=== PATIENT | female | born 1960 | race Caucasian/White ===

== ENCOUNTER 2017-04-14 11:31 | Outpatient (CLI) | payer OTHER ==
[2017-04-14 11:44] LABS: BASOPHILS % 0.3 (0.0-1.5); EOSINOPHILS % 1.8 % (0.0-6.8); MEAN CORPUSCULAR HEMOGLOBIN 29.5 pg (28.0-34.0); MEAN CORPUSCULAR VOLUME 87.2 fl (80.0-100.0); MONOCYTES % 5.1 % (0.0-11.0); NEUTROPHILS # 4.8 # k/uL (1.4-7.7)
[2017-04-14 12:11] LABS: eGFR (African) > 60; eGFR (Non-African) > 60
--- NOTE | 2017-04-14 13:26 | Diagnostic Imaging Report ---
KATHY DIAZ [facility] [address] [facility] [address] [place], [place]. [address] Report Submission Date: Apr 14, 2017 12:26:09 PM CDT Patient Study Name: ELY SWAIN Date: Apr 14, 2017 11:54:35 AM CDT Modality Type: CR Gender: F Description: ABDOMEN : 58 Institution: [facility] Physician: KATHY DIAZ Examination: Obstruction series History: Abdominal discomfort Findings: 3 views obtained of the abdomen. No abnormal dilation of the large or small bowel. Air and stool throughout the large bowel. No suspicious calcification projecting over the renal fossa or the lower pelvic region. Osseous structures are appropriate for age. Impression: No ileus or obstruction. No suspicious calcifications by plain film sensitivity. Electronically signed on Apr 14, 2017 12:26:09 PM CDT by: Aaron VALENTINE
== END 2017-04-14 11:32 ==
LOC: RAD 11:31
PROVIDERS: ATTEND Family Medicine
DX: R10.10 Upper abdominal pain, unspecified (principal)
CPT/HCPCS: 36415; 74020; 80053; 80074; 85025

== ENCOUNTER 2017-04-15 07:43 | Outpatient (CLI) | payer OTHER ==
[2017-04-15 08:57] LABS: eGFR (African) > 60; eGFR (Non-African) > 60
--- NOTE | 2017-04-15 19:13 | Diagnostic Imaging Report ---
KATHY DIAZ [facility] [address] [facility] [address] [address] Report Submission Date: Apr 15, 2017 9:08:19 AM CDT Patient Study Name: ELY SWAIN Date: Apr 15, 2017 8:04:31 AM CDT Modality Type: US Gender: F Description: US ABD LIMITED : 58 Institution: [facility] Physician: KATHY DIAZ Ultrasound right upper quadrant History: Elevated liver enzymes, right upper quadrant pain, nausea, for 2 weeks Findings: Visualized portions of the pancreas are unremarkable. Mildly increased hepatic parenchymal echogenicity is observed. Antegrade main portal venous flow is present. An 8 mm right renal stone is observed. The right kidney otherwise normal. Innumerable gallstones and moderate gallbladder contraction are observed without significant gallbladder wall thickening. The common bile duct measures 4 mm in diameter. Impression: 1. Mild hepatic steatosis. 2. Cholelithiasis. 3. Right renal stone as observed radiographically yesterday. Electronically signed on Apr 15, 2017 9:08:19 AM CDT by: Adam VALENTINE
== END 2017-04-15 07:44 ==
LOC: RAD 07:43
PROVIDERS: ATTEND Family Medicine
DX: R10.10 Upper abdominal pain, unspecified (principal); R79.89 Other specified abnormal findings of blood chemistry
CPT/HCPCS: 36415; 76705; 80053

== ENCOUNTER 2017-04-22 07:03 | Outpatient (CLI) | payer OTHER ==
[2017-04-22 07:42] LABS: eGFR (African) > 60; eGFR (Non-African) > 60
== END 2017-04-22 07:04 ==
LOC: LAB 07:03
PROVIDERS: ATTEND Family Medicine
DX: R79.89 Other specified abnormal findings of blood chemistry (principal)
CPT/HCPCS: 36415; 80053

== ENCOUNTER 2017-07-04 04:40 | Emergency (ER) | payer OTHER ==
[2017-07-04] MEDS ORDERED: KETOROLAC TROMETHAMINE 60 MG/2 ML VIAL ONE (04:51)
[2017-07-04] MEDS ORDERED: KETOROLAC TROMETHAMINE 60 MG/2 ML VIAL IM ONE (04:52)
[2017-07-04 05:01] VITALS: BP 148/81
--- NOTE | 2017-07-04 05:24 | ED Physician Documentation ---
GI Bleed - HISTORIAN Historian: patient - HPI Stated Complaint: flank pain Chief Complaint: Abdominal Pain Additional Information: proven gall stones sched for surgery Jul 24 having ac exab pain requests nonopiate pain meds Onset: days ago (2-3 worse tonite) Timing: still present Severity: moderate - Associated Symptoms Abdominal Pain: cramping, aching, burning, moderate, RUQ Other Related Symptoms: nausea, back pain - ROS CONST: no problems CVS/RESP: none EYES/ENT: denies: problems with vision, sore throat NEURO/PSYCH: anxiety, depression - PAST HX Past History: other (bipolar lo thryoid gerd hi chol) Surgeries/Procedures: BLT Allergies/Adverse Reactions: Allergies Allergy/AdvReac Type Severity Reaction Status Date / Time No Known Allergies Allergy Verified 07/04/17 04:54 Home Medications: Ambulatory Orders Medication Instructions Recorded Clonazepam [Klonopin] 1 mg PO BID 09/01/12 Lamotrigine [Lamictal] 200 mg PO DAILY 09/01/12 Sertraline HCl [Zoloft] 200 mg PO DAILY 09/01/12 Ziprasidone HCl [Geodon] 80 mg PO BID 09/01/12 - SOCIAL HX Smoking History: non-smoker Alcohol Use: none Drug Use: none - FAMILY HX Family History: none - VITAL SIGNS Vital Signs: Vital Signs Temp Pulse Resp BP Pulse Ox 98.4 F 75 16 148/81 99 07/04/17 04:45 07/04/17 04:45 07/04/17 04:45 07/04/17 04:45 07/04/17 04:45 - REVIEWED ASSESSMENTS Nursing Assessment Reviewed: Yes Vitals Reviewed: Yes ED Results Lab/Radiology - Orders Orders: ED Orders Category Date Time Status Ketorolac Tromethamine [Toradol] Med 07/04/17 04:51 Discontinued 60 mg .ROUTE .STK-MED ONE Ketorolac Tromethamine [Toradol] Med 07/04/17 04:52 Once 60 mg IM NOW ONE Abdominal Pain Physical Exam - Physical Exam General Appearance: mild distress, moderate distress EENT: eye inspection normal NECK: normal inspection RESPIRATORY: no resp distress, chest non-tender, breath sounds normal CVS: reg rate & rhythm, heart sounds normal ABDOMEN: soft, tenderness (all acrossupper abdomen). No: abnormal bowel sounds SKIN: warm/dry, normal color. No: cyanosis, diaphoresis, jaundice EXTREMITIES: non-tender, normal range of motion NEURO: oriented X3, motor nml, sensation nml, mood/affect nml Vital Signs: Vital Signs Temp Pulse Resp BP Pulse Ox 98.4 F 75 16 148/81 99 07/04/17 04:45 07/04/17 04:45 07/04/17 04:45 07/04/17 04:45 07/04/17 04:45 Discharge Clincal Impression: gall stones w/ccolic Referrals: Britany Guzman MD [Primary Care Provider] - 2 Days Condition: Good Disposition: 01 HOME, SELF-CARE Decision to Admit: NO Decision Time: 05:28
== END 2017-07-04 05:20 | disposition home or self-care (01) ==
LOC: ED 04:40
DX: K80.10 Calculus of gallbladder with chronic cholecystitis without obstruction (principal)
CPT/HCPCS: 96372; 99283; J1885

== ENCOUNTER 2017-08-07 07:03 | Outpatient (CLI) | payer OTHER | END 2017-08-07 07:05 | LOC: LAB 07:03 | PROVIDERS: ATTEND Counselor Mental Health | DX: Z79.899 Other long term (current) drug therapy (principal) | CPT/HCPCS: 36415; 80061; 84439; 84443 ==

== ENCOUNTER 2017-10-08 07:38 | Day surgery (SDC) | payer OTHER ==
--- NOTE | 2017-10-09 10:25 | Operative Note ---
SURGEON: Yossi Cavanaugh MD ANESTHESIA: MAC anesthesia. ESTIMATED BLOOD LOSS: None. COMPLICATIONS: None. PREOPERATIVE DIAGNOSIS: Screening colonoscopy. POSTOPERATIVE DIAGNOSIS: Colon polyps. PROCEDURE PERFORMED: Colonoscopy with polypectomy. INDICATIONS: This is a 56-year-old woman who presents for a screening colonoscopy. DESCRIPTION OF PROCEDURE: Patient was brought to the endoscopy suite and placed in the left lateral decubitus position. A rectal examination was performed. There were no masses. The colonoscope was inserted and passed easily to the cecum. The prep was excellent. The appendiceal orifice and ileocecal valve were identified. The colonoscope was slowly retracted. There was a greater than 6 minute withdrawal time. In the sigmoid, there was an approximately 6 mm sessile polyp which was completely removed with a hot snare. In the rectum, there was a 3 mm to 4 mm sessile removed with a cold snare. There were no other findings. There were no other abnormalities. The patient tolerated the procedure well. SPECIMEN: Colon polyps. FINDINGS: 1. A small sessile polyp in the sigmoid colon completely removed with a hot snare. 2. Diminutive sessile polyp in the rectum completely removed with a cold snare. RECOMMENDATIONS: I recommend a repeat colonoscopy in 5 years. cc: Dr. Britany VALENTINE
== END 2017-10-08 07:40 ==
LOC: OPSURG 07:38
PROVIDERS: ATTEND Colon & Rectal Surgery
DX: Z12.11 Encounter for screening for malignant neoplasm of colon (principal); D12.5 Benign neoplasm of sigmoid colon; D12.8 Benign neoplasm of rectum
CPT/HCPCS: 45385; J2001; J2704; J7120; S1016

== ENCOUNTER 2017-12-11 07:07 | Emergency (ER) | payer OTHER ==
[2017-12-11] MEDS ORDERED: methylPREDNISolone SOD SUCC 125 MG/2 ML VIAL IVP ONE (07:37)
[2017-12-11] MEDS ORDERED: BUDESONIDE 0.5MG/2ML AMPUL.NEB NEB ONE (07:55)
[2017-12-11 07:57] LABS: MEAN CORPUSCULAR HEMOGLOBIN 29.9 pg (28.0-34.0); MEAN CORPUSCULAR VOLUME 89.5 fl (80.0-100.0)
[2017-12-11] MEDS ORDERED: BUDESONIDE 0.5MG/2ML AMPUL.NEB NEB SCH (08:00)
[2017-12-11 08:06] LABS: BASOPHILS % 0.3 (0.0-1.5); EOSINOPHILS % 1.5 % (0.0-6.8); MONOCYTES % 8.5 % (0.0-11.0); NEUTROPHILS # 4.5 # k/uL (1.4-7.7)
[2017-12-11] MEDS ORDERED: GUAIFENESIN/CODEINE 10 ML S/F LIQUID DOSE CUP PO ONE (08:09)
[2017-12-11 08:10] LABS: eGFR (African) > 60; eGFR (Non-African) > 60
[2017-12-11] MEDS ORDERED: ACETAMINOPHEN 325 MG TABLET PO ONE (08:57)
--- NOTE | 2017-12-11 09:10 | ED Physician Documentation ---
Upper Respiratory Symptoms - HISTORIAN Historian: patient - HPI Stated Complaint: cough, diff breathing Chief Complaint: Cough/ Upper Respiratory Additional Information: x 2 weeks, no help from amoxicilin, pro air and tessalon Onset: days ago (14) Duration: sudden-Onset Context: denies: recent foreign travel, insect bite(s), tick(s), recent chemotherapy, multiple patients, same sx Severity: moderate Associated Symptoms: headache, other (nonproductive cough). denies: bloody cough Worsened by Deep Breath: Yes Further Comments: no - ROS CONST/EYES: denies: weakness, eye redness, eye itching CVS/RESP: shortness of breath, other (cough) LYMPH: denies: leg swelling, rash, swollen glands, ankle swelling GI/: none NEURO/PSYCH: denies: fainting, dizziness, confusion, anxiety, depression MS/SKIN: denies: joint pain, muscle aches, rash - PAST HX Lung Disease: COPD Other History: other (anxiety, bipolar disorder) Surgeries/Procedures: none Immunizations: referred to PCP Allergies/Adverse Reactions: Allergies Allergy/AdvReac Type Severity Reaction Status Date / Time No Known Allergies Allergy Verified 12/11/17 07:24 Home Medications: Ambulatory Orders Medication Instructions Recorded Clonazepam [Klonopin] 1 mg PO AM 09/01/12 Lamotrigine [Lamictal] 200 mg PO DAILY 09/01/12 Sertraline HCl [Zoloft] 200 mg PO DAILY 09/01/12 Ziprasidone HCl [Geodon] 40 mg PO BID 09/01/12 Adalimumab [Humira] 40 mg SQ Q14D 28 Days #2 12/01/17 Clonazepam [Clonazepam] 2 mg PO HS 12/11/17 diphenhydrAMINE HCL [Benadryl] 50 mg PO BID 12/11/17 - SOCIAL HX Smoking History: quit greater than 1 year Alcohol Use: none Drug Use: none - FAMILY HX Family History: no significant history - VITAL SIGNS Vital Signs: Vital Signs Temp Pulse Resp BP Pulse Ox 98.2 F 83 20 140/78 93 12/11/17 07:07 12/11/17 07:07 12/11/17 07:07 12/11/17 07:07 12/11/17 07:07 - REVIEWED ASSESSMENTS Nursing Assessment Reviewed: Yes Vitals Reviewed: Yes Progress - Results/Orders Results/Orders: cbc, cmp, blood cultures, lactic acid, ua, bnp, trop, cxr, ekg ordered - Progress Progress: Pt. given 1 liter NS via IV, 10 cc Robitussin AC, Duoneb via nebulizer, Pulmicort 0.5 mg via nebulizer and 125 mg Solu Medrol via nebulizer in ER with significant improvement. Critical Care Note - Critical Care Note Total Time (mins): 0 ED Results Lab/Radiology - Lab Results Lab Results: Lab Results 12/11/17 12/11/17 12/11/17 07:35 07:35 07:35 WBC 7.44 K/ul K/ul (4.00-12.00) RBC 4.04 M/ul M/ul (3.90-5.20) Hgb 12.1 g/dL g/dL (12.0-16.0) Hct 36.1 % % (34.5-46.5) MCV 89.5 fl fl (80.0-100.0) MCH 29.9 pg pg (28.0-34.0) MCHC 33.4 g/dL g/dL (30.0-36.0) RDW 14.7 % H % (11.3-14.3) Plt Count 213 K/mm3 K/mm3 (130-400) Neut % (Auto) 61.0 % % (39.0-79.0) Lymph % (Auto) 26.9 % % (16.0-50.0) Garza % (Auto) 8.5 % % (0.0-11.0) Eos % (Auto) 1.5 % % (0.0-6.8) Baso % (Auto) 0.3 (0.0-1.5) Neut # (Auto) 4.5 # k/uL # k/uL (1.4-7.7) Lymph # (Auto) 2.0 # k/uL # k/uL (0.6-4.0) Garza # (Auto) 0.6 # k/uL # k/uL (0.0-0.9) Eos # (Auto) 0.1 # k/uL # k/uL (0.0-0.6) Baso # (Auto) 0.0 # k/uL # k/uL (0.0-0.5) Sodium 143 mmol/L mmol/L (136-145) Potassium 3.9 mmol/L mmol/L (3.5-5.1) Chloride 104 mmol/L mmol/L (98-107) Carbon Dioxide 25 mmol/L mmol/L (22-30) BUN 9 mg/dL mg/dL (7-17) Creatinine 0.50 mg/dL L mg/dL (0.52-1.04) Estimated Creat Clear 209 Est GFR ( Amer) > 60 (60 - ) Est GFR (Non-Af Amer) > 60 (60 - ) Glucose 94 mg/dL mg/dL (74-106) Lactate 1.9 U/L U/L (0.7-2.1) Calcium 9.4 mg/dL mg/dL (8.4-10.2) Total Bilirubin 0.7 mg/dL mg/dL (0.2-1.3) AST 46 U/L U/L (15-46) ALT 47 U/L U/L (13-69) Alkaline Phosphatase 130 U/L H U/L (38-126) Troponin I < 0.03 ng/mL L ng/mL (0.03-0.06) NT-Pro-B Natriuret Pep 30.4 pg/mL pg/mL (15.0-125.0) Total Protein 7.6 g/dL g/dL (6.3-8.2) Albumin 4.4 g/dL g/dL (3.5-5.0) - Radiology Radiology Impressions: cxr clear of infiltrate - Orders Orders: ED Orders Category Date Time Status CHEST 2VIEW [RAD] Routine Exams 12/11/17 Ordered BLOOD CULTURE Routine Lab 12/11/17 07:35 Received CBC/PLATELET/DIFF Routine Lab 12/11/17 07:35 Completed CMP Routine Lab 12/11/17 07:35 Completed LACTATE Routine Lab 12/11/17 07:35 Completed NT-proBNP Routine Lab 12/11/17 07:35 Completed TROPONIN I (cTnI) Routine Lab 12/11/17 07:35 Completed URINALYSIS Routine Lab 12/11/17 07:36 Ordered Acetaminophen [Tylenol] Med 12/11/17 08:57 Once 650 mg PO NOW ONE Budesonide [Pulmicort] Med 12/11/17 08:00 Ordered 0.5 mg NEB BID Codeine Phosphate/Guaifenesin [Robitussin AC] Med 12/11/17 08:09 Discontinued 10 ml PO 1T ONE methylPREDNISolone SOD SUCC [Solu-MEDROL] Med 12/11/17 07:37 Discontinued 125 mg IVP NOW ONE Oxygen Daily Oxygen 12/11/17 07:45 Ordered EKG WITH COMPARISON Routine Ther 12/11/17 Ordered Upper Respiratory Symptoms - EXAM General Appearance: alert, moderate distress EENT: eyes nml inspection, nml ENT inspection, lids & conjunct. nml, PERRL, ear nml. No: pain over sinuses Neck: normal inspection, thyroid normal, supple Respiratory: respiratory distress (mild), wheezes, rales (left base). No: retractions, accessory muscle use, chest wall tenderness Abdomen: non-tender, no organomegaly, nml bowel sounds CVS: reg rate & rhythm, heart sounds normal, equal pulses Skin: color nml, no rash, warm,dry Extremities: non-tender, normal range of motion Neuro/Psych: oriented x3, neuro intact, mood/affect nml Discharge Clincal Impression: Bronchitis, COPD exacerbation Referrals: Britany Guzman MD [Primary Care Provider] - 2 Days Comments: Discharged home in stable and improved condition with scripts for: Robitussin AC # 200 cc 2 tsp every 4 hours as needed for cough, Prednisone 10 mg #21 Z- 6 pills tomorrow, 5 the next, 4 the next, 3 the next, 2 the next, 1 the next, then stop, Z-pack #1 as directed, nebulizer and albuterol 0.083% prefills #60 1 vial via nebulizer q 4 hours while awake. Condition: Stable Disposition: 01 HOME, SELF-CARE Decision to Admit: NO Decision Time: 09:10
[2017-12-11 09:42] VITALS: BP 129/80
--- NOTE | 2017-12-11 18:04 | Diagnostic Imaging Report ---
CUCA DINERO [facility] [address] [facility] [address] Report Submission Date: December 11, 2017 8:04:46 AM CDT Patient Study Name: ELY SWAIN Date: December 11, 2017 7:43:55 AM CDT Modality Type: DX Gender: F Description: CHEST : 58 Institution: [facility] Physician: CUCA DINERO HISTORY: 56-year-old female with cough for 2 weeks COMPARISON: None available TECHNIQUE: 2 views of the chest were performed. FINDINGS: No pneumothorax, consolidative infiltrates, pleural effusions, or pulmonary edema. There may be calcified lymph nodes in the right hilum. The heart is not enlarged. There is mild thoracic degenerative disc disease. IMPRESSION: No acute cardiopulmonary process identified. Electronically signed on December 11, 2017 8:04:46 AM CDT by: Israel VALENTINE
== END 2017-12-11 09:30 | disposition home or self-care (01) ==
LOC: ED 07:07
DX: J20.9 Acute bronchitis, unspecified (principal); J44.1 Chronic obstructive pulmonary disease with (acute) exacerbation
CPT/HCPCS: 71046; 80053; 83605; 83880; 84484; 85025; 87040; 93005; 94640; 96374; 99285; J2930; J7626; 99284

== ENCOUNTER 2018-01-08 10:50 | Outpatient (CLI) | payer OTHER | END 2018-01-08 10:52 | LOC: LABRHC 10:50 | PROVIDERS: ATTEND Physician Assistant | DX: N30.00 Acute cystitis without hematuria (principal) | CPT/HCPCS: 87086 ==

== ENCOUNTER 2018-03-01 16:04 | Outpatient (CLI) | payer OTHER | END 2018-03-01 16:05 | LOC: LABRHC 16:04 | PROVIDERS: ATTEND Family Medicine | DX: R30.0 Dysuria (principal) | CPT/HCPCS: 87086 ==

== ENCOUNTER 2018-03-22 16:16 | Outpatient (CLI) | payer OTHER | END 2018-03-22 16:17 | LOC: LABRHC 16:16 | PROVIDERS: ATTEND Family Medicine | DX: R30.0 Dysuria (principal) | CPT/HCPCS: 87086 ==

== ENCOUNTER 2018-05-07 11:36 | Outpatient (CLI) | payer OTHER | END 2018-05-07 11:38 | LOC: LABRHC 11:36 | PROVIDERS: ATTEND Physician Assistant | DX: R30.0 Dysuria (principal) | CPT/HCPCS: 87086 ==

== ENCOUNTER 2018-07-02 15:00 | Outpatient (CLI) | payer OTHER ==
[2018-07-02 15:40] LABS: BASOPHILS % 0.4 (0.0-1.5); EOSINOPHILS % 1.8 % (0.0-6.8); MEAN CORPUSCULAR HEMOGLOBIN 30.3 pg (28.0-34.0); MONOCYTES % 5.4 % (0.0-11.0); NEUTROPHILS # 4.1 # k/uL (1.4-7.7)
[2018-07-02 15:47] LABS: eGFR (Non-African) > 60
[2018-07-03 01:01] LABS: DIRECT BILIRUBIN <0.2 mg/dL (<0.4); TOTAL PROTEIN 7.2 g/dL (6.0-8.5)
== END 2018-07-02 15:03 ==
LOC: LAB 15:00
PROVIDERS: ATTEND Family Medicine
DX: L40.50 Arthropathic psoriasis, unspecified (principal)
CPT/HCPCS: 36415; 80076; 82565; 85025

== ENCOUNTER 2018-07-26 09:26 | Outpatient (CLI) | payer OTHER ==
[2018-07-26 09:51] LABS: MEAN CORPUSCULAR HEMOGLOBIN 29.1 pg (28.0-34.0)
[2018-07-26 09:52] LABS: BASOPHILS % 0.3 (0.0-1.5); EOSINOPHILS % 1.8 % (0.0-6.8); MONOCYTES % 5.3 % (0.0-11.0); NEUTROPHILS # 3.8 # k/uL (1.4-7.7)
[2018-07-26 11:10] LABS: eGFR (Non-African) > 60
[2018-07-26 16:02] LABS: DIRECT BILIRUBIN <0.2 mg/dL (<0.4); TOTAL PROTEIN 7.1 g/dL (6.0-8.5)
== END 2018-07-26 09:35 ==
LOC: LAB 09:26
PROVIDERS: ATTEND Internal Medicine
DX: M06.9 Rheumatoid arthritis, unspecified (principal)
CPT/HCPCS: 36415; 80076; 82565; 85025

== ENCOUNTER 2018-08-30 09:05 | Outpatient (CLI) | payer OTHER ==
--- NOTE | 2018-08-30 16:10 | Diagnostic Imaging Report ---
KATHY DIAZ [facility] [id number] Counts Include [address] [facility] At [facility] [address] [place], [place]. [address] Report Submission Date: Aug 30, 2018 10:02:18 AM UNIFORM ROOM ATTENDANT Patient Study Name: ELY SWAIN Date: Aug 30, 2018 9:17:37 AM UNIFORM ROOM ATTENDANT Modality Type: DX Gender: F Description: CHEST 2 VIEW : 58 Institution: [facility] Physician: KATHY DIAZ Examination: PA and lateral chest. History: CHEST AND RIB PAIN X 6 MONTHS. QUIT SMOKING 6 YEARS AGO Comparison exam: 11 Dec 2017 Findings: PA and lateral views of the chest demonstrates a normal cardiac and mediastinal silhouette. Mildly tortuous aorta. No focal infiltrate. No blunting of the costophrenic margins. Osseous structures are appropriate for age. Impression: No acute appearing pulmonary process. Electronically signed on Aug 30, 2018 10:02:18 AM UNIFORM ROOM ATTENDANT by: Aaron VALENTINE
== END 2018-08-30 09:06 ==
LOC: RT 09:05
PROVIDERS: ATTEND Family Medicine
DX: R07.9 Chest pain, unspecified (principal)
CPT/HCPCS: 36415; 71046; 82550; 82553; 84484

== ENCOUNTER 2018-10-11 15:30 | Outpatient (CLI) | payer OTHER | END 2018-10-11 15:33 | LOC: LABRHC 15:30 | PROVIDERS: ATTEND Nurse Practitioner Family | DX: N30.00 Acute cystitis without hematuria (principal) | CPT/HCPCS: 87086 ==

== ENCOUNTER 2018-10-21 09:18 | Outpatient (CLI) | payer OTHER | END 2018-10-21 09:20 | LOC: LAB 09:18 | PROVIDERS: ATTEND Psychiatry & Neurology Psychiatry | DX: F31.9 Bipolar disorder, unspecified (principal) | CPT/HCPCS: 36415; 80061; 83036 ==

== ENCOUNTER 2018-11-29 12:09 | Outpatient (CLI) | payer OTHER | END 2018-11-29 12:11 | LOC: LABRHC 12:09 | PROVIDERS: ATTEND Family Medicine | DX: N39.0 Urinary tract infection, site not specified (principal) | CPT/HCPCS: 87086 ==

== ENCOUNTER 2019-03-18 10:44 | Outpatient (CLI) | payer OTHER ==
[2019-03-18 12:13] LABS: HDL 27 mg/dL (>40); eGFR (Non-African) > 60
== END 2019-03-18 10:46 ==
LOC: LAB 10:44
PROVIDERS: ATTEND Psychiatry & Neurology Psychiatry
DX: Z79.899 Other long term (current) drug therapy (principal)
CPT/HCPCS: 36415; 80048; 80061; 84443